=== PATIENT | male | born 1960 | race Hispanic/Latino ===

== ENCOUNTER 2022-05-09 16:33 | Observation (INO) | payer OTHER ==
[~2022-05-09] VITALS: Ht 162.6 cm; Wt 106.6 kg
[2022-05-09] MEDS ORDERED: METHYLPREDNISOLONE SOD SUCC 125 MG/2ML VIAL IV ONE (16:45)
[2022-05-09] MEDS ORDERED: ALBUTEROL/IPRATROPIUM 3 ML NEB NEB ONE (16:45)
[2022-05-09 17:01] LABS: BASOPHILS # (AUTO) 0.1 (0.0-0.1); BASOPHILS % 0.5 % (0.0-1.0); EOSINOPHILS # (AUTO) 0.7 (0.0-0.4); EOSINOPHILS % 6.6 % (0.0-6.0); HEMATOCRIT 43.1 % (38.2-49.6); HEMOGLOBIN 14.6 g/dL (14.0-18.0); LYMPHOCYTES # (AUTO) 1.9 (1.0-3.2); LYMPHOCYTES % 18.5 % (18.0-39.1); MEAN CORPUSCULAR HGB CONC 33.9 g/dL (31-35); MEAN CORPUSCULAR VOLUME 88.7 fL (81-99); MONOCYTES # (AUTO) 0.6 (0.2-0.8); MONOCYTES % 6.1 % (4.4-11.3); NEUTROPHILS # (AUTO) 7.1 (2.1-6.9); NEUTROPHILS % 67.7 % (38.7-80.0); PLATELET COUNT 231 x10e3/uL (140-360); RED BLOOD COUNT 4.86 x10e6/uL (4.3-5.7); RED CELL DISTRIBUTION WIDTH 12.3 % (11.7-14.4)
[2022-05-09 17:06] LABS: ABG HCO3 26 mmol/L (22-26); ABG PCO2 43 mmHg (35-45); ABG PH 7.39 (7.35-7.45); ABG PO2 143 mmHg (80-105); ABG TCO2 28
[2022-05-09 17:17] LABS: ALBUMIN 3.7 g/dL (3.5-5.0); ALBUMIN/GLOBULIN RATIO 1.3 (0.8-2.0); ANION GAP 15.6 mmol/L (8-16); CALCIUM 9.2 mg/dL (8.4-10.2); CREATININE, SERUM 1.15 mg/dL (0.72-1.25); POTASSIUM 3.6 mmol/L (3.5-5.1)
[2022-05-09] MEDS ORDERED: LEVOFLOXACIN 750MG/D5W 150ML 150 ML IV STA (17:21)
[2022-05-09] MEDS ORDERED: ALBUTEROL/IPRATROPIUM 3 ML NEB NEB PRN (21:30)
[2022-05-09] MEDS: ALBUTEROL/IPRATROPIUM 3 ML NEB NEB SCH (21:50)
[2022-05-09 22:04] LABS: CREATINE KINASE MB 3.9 ng/mL (0-5.0)
[2022-05-09] MEDS ORDERED: POTASSIUM CHLORIDE 20 MEQ TAB CR PO STA (22:12)
[2022-05-09] MEDS ORDERED: MAGNESIUM/ALUMINUM/SIMETHICONE 30 ML UDC PO PRN (22:15)
[2022-05-09] MEDS ORDERED: ONDANSETRON HCL INJ 2MG/ML 2ML 2 MG/ML VIAL IV PRN (22:15)
[2022-05-09] MEDS ORDERED: DOCUSATE SODIUM 100 MG CAP PO PRN (22:15)
[2022-05-09] MEDS ORDERED: ACETAMINOPHEN 325 MG TAB PO PRN (22:15)
[2022-05-09] MEDS ORDERED: HYDRALAZINE HCL 20 MG/ML VIAL IV PRN (22:15)
[2022-05-09] MEDS ORDERED: MELATONIN 3 MG TAB PO PRN (22:15)
[2022-05-09] MEDS ORDERED: GUAIFENESIN/DEXTROMETHORPHAN LIQD 5 ML UDC PO PRN (22:15)
[2022-05-10] VITALS (9 sets, daily range): BP systolic 139–151; BP diastolic 67–98
[2022-05-10] MEDS ORDERED: ALBUTEROL1.25 MG/3 NEB (00:35)
[2022-05-10] MEDS ORDERED: LOSARTAN POTAS100 MG PO (00:35)
[2022-05-10] MEDS ORDERED: PROVENTIL HFA6.7 GM INH (00:35)
[2022-05-10] MEDS ORDERED: DIAZEPAM5 MG PO (01:14)
[2022-05-10] MEDS: ALBUTEROL/IPRATROPIUM 3 ML NEB NEB SCH ×6 (03:07→23:02)
[2022-05-10 05:52] LABS: BASOPHILS % 0.1 % (0.0-1.0); HEMATOCRIT 42.5 % (38.2-49.6); HEMOGLOBIN 14.3 g/dL (14.0-18.0); LYMPHOCYTES # (AUTO) 0.5 (1.0-3.2); MEAN CORPUSCULAR HEMOGLOBIN 29.9 pg (28-32); MEAN CORPUSCULAR HGB CONC 33.6 g/dL (31-35); MEAN CORPUSCULAR VOLUME 88.7 fL (81-99); MONOCYTES # (AUTO) 0.1 (0.2-0.8); MONOCYTES % 0.7 % (4.4-11.3); NEUTROPHILS % 94.6 % (38.7-80.0); PLATELET COUNT 224 x10e3/uL (140-360); RED BLOOD COUNT 4.79 x10e6/uL (4.3-5.7); RED CELL DISTRIBUTION WIDTH 12.3 % (11.7-14.4)
[2022-05-10 06:17] LABS: ANION GAP 19.4 mmol/L (8-16); CALCIUM 9.3 mg/dL (8.4-10.2); CREATININE, SERUM 1.26 mg/dL (0.72-1.25); POTASSIUM 4.4 mmol/L (3.5-5.1)
[2022-05-10 06:25] LABS: CREATINE KINASE MB 4.5 ng/mL (0-5.0)
[2022-05-10] MEDS ORDERED: INSULIN LISPRO 100 UNIT/1 ML 3ML VIAL SQ ONE (06:45)
[2022-05-10] MEDS ORDERED: DEXTROSE 50% SYRINGE 50 ML IV PRN (06:45)
[2022-05-10] MEDS: SODIUM CHLORIDE 0.9% 1000ML 1,000 ML IV SCH ×2 (07:15→16:59)
[2022-05-10] MEDS: INSULIN LISPRO 100 UNIT/1 ML 3ML VIAL SQ SCH ×4 (09:33→21:30)
[2022-05-10] MEDS: METHYLPREDNISOLONE SOD SUCC 40 MG/ML VIAL 1ML IV SCH ×2 (09:34→21:22)
[2022-05-10] MEDS: MULTIVITAMINS/MINERALS TAB PO SCH (09:35)
[2022-05-10] MEDS: FAMOTIDINE 20 MG TAB PO SCH ×2 (09:36→17:05)
[2022-05-10 15:17] LABS: CREATINE KINASE 161 IU/L (30-200)
[2022-05-10] MEDS ORDERED: ENOXAPARIN SOD INJ 40 MG/0.4 ML SYR SC SCH (17:00)
[2022-05-10] MEDS ORDERED: MONTELUKAST SODIUM 10 MG TAB PO SCH (21:00)
[2022-05-11] VITALS: BP 138/77
[2022-05-11] MEDS: SODIUM CHLORIDE 0.9% 1000ML 1,000 ML IV SCH ×2 (00:27→08:51)
[2022-05-11] MEDS: ALBUTEROL/IPRATROPIUM 3 ML NEB NEB SCH ×3 (02:55→10:55)
[2022-05-11 06:10] VITALS: BP 178/87
[2022-05-11 08:22] VITALS: BP 157/68
[2022-05-11 08:38] VITALS: BP 157/81
[2022-05-11 08:44] VITALS: BP 157/81
[2022-05-11] MEDS: MULTIVITAMINS/MINERALS TAB PO SCH (08:50)
[2022-05-11] MEDS: FAMOTIDINE 20 MG TAB PO SCH (08:50)
[2022-05-11] MEDS: METHYLPREDNISOLONE SOD SUCC 40 MG/ML VIAL 1ML IV SCH (08:51)
[2022-05-11] MEDS: INSULIN LISPRO 100 UNIT/1 ML 3ML VIAL SQ SCH ×2 (09:39→12:12)
[2022-05-11] MEDS ORDERED: PREDNISONE10 MG PO (11:39)
[2022-05-11] MEDS ORDERED: FAMOTIDINE20 MG PO (11:39)
[2022-05-11] MEDS ORDERED: SYMBICORT 16010.2 GM INH (11:39)
[2022-05-11] MEDS ORDERED: PROVENTIL HFA6.7 GM INH (11:39)
[2022-05-11] MEDS ORDERED: SINGULAIR10 MG PO (11:39)
[2022-05-11 12:36] VITALS: BP 157/79
[2022-05-11] MEDS ORDERED: METFORMIN HCL500 MG PO (13:11)
== END 2022-05-11 13:26 | disposition home or self-care (01) ==
LOC: ER 16:39 → ERHOLD 17:31 → MED/SURG3 05-10 01:23
PROVIDERS: ADMIT Internal Medicine; ATTEND Internal Medicine
DX: J45.901 Unspecified asthma with (acute) exacerbation (principal); J96.01 Acute respiratory failure with hypoxia; E66.9 Obesity, unspecified; Z68.38 Body mass index [BMI] 38.0-38.9, adult; Z20.822 Contact with and (suspected) exposure to COVID-19; Z88.5 Allergy status to narcotic agent
CPT/HCPCS: 36415 ×3; 36600; 71045; 71046; 80048; 80053; 82550 ×2; 82553 ×2; 82805; 82948 ×2; 83036; 84484 ×2; 85025 ×2; 93005 ×2; 94640 ×3; 94799 ×3; 99284; G0378 ×3; J1650; J2920 ×2; J2930; J7030 ×2; U0002